=== PATIENT | female | born 1945 | race Caucasian/White ===

== ENCOUNTER → 2023-04-10 09:38 | Outpatient (REF) | payer MEDICARE, SELFPAY | LOC: HWRAD 09:38 | PROVIDERS: ATTENDING PHYSICIAN Specialist; FAMILY PHYSICIAN Internal Medicine | DX: N83.209 Unspecified ovarian cyst, unspecified side (principal) | CPT/HCPCS: 76830; 76856 ==

== ENCOUNTER → 2023-04-14 14:15 | Outpatient (REF) | payer MEDICARE, SELFPAY | LOC: DHCBC MAIN 14:15 | PROVIDERS: ATTENDING PHYSICIAN Internal Medicine Cardiovascular Disease; FAMILY PHYSICIAN Internal Medicine | DX: I48.0 Paroxysmal atrial fibrillation (principal); I10 Essential (primary) hypertension; I34.0 Nonrheumatic mitral (valve) insufficiency | CPT/HCPCS: 93306 ==

== ENCOUNTER → 2023-07-08 11:06 | Outpatient (REF) | payer MEDICARE, SELFPAY | LOC: WDC 11:06 | PROVIDERS: ATTENDING PHYSICIAN Internal Medicine | DX: Z12.31 Encounter for screening mammogram for malignant neoplasm of breast (principal) | CPT/HCPCS: 77063; 77067 ==

== ENCOUNTER → 2023-07-11 07:41 | Outpatient (REF) | payer MEDICARE, SELFPAY ==
[2023-07-11 08:12] LABS: % Basophils 0.6 % (0-2); % Eosinophils 2.9 % (0-6); % Immature Granulocytes 0.4 % (0-0.5); % Lymphocytes 29.3 % (20.5-51.1); % Monocytes 7.3 % (1.7-9.3); % Neutrophils 59.5 % (42.2-75.2); Absolute Eosinophils 0.2 10^3/uL (0-0.7); Absolute Lymphocytes 2.1 10^3/uL (1.2-3.4); Absolute Monocytes 0.5 10^3/uL (0.1-0.6); Absolute Neutrophils 4.3 10^3/uL (1.4-6.5); Hematocrit 40.5 % (37.0-47.0); Hemoglobin 13.6 g/dL (12.0-16.0); Mean Corp Hgb Conc. 33.6 g/dL (33.0-37.0); Mean Corpuscular Hgb 29.9 pg (27.0-31.0); Mean Platelet Volume 9.7 fL (7.4-10.4); Nucleated Red Blood Cells % 0 %; Platelet Count 263 10^3/uL (130-400); Red Blood Cell Count 4.55 10^6/uL (4.20-5.40); Red Cell Dist. Width 13.5 % (11.5-14.5); White Blood Cell Count 7.2 10^3/uL (4.8-10.8)
[2023-07-11 09:06] LABS: ALT (SGPT) 24 U/L (0-35); AST (SGOT) 29 U/L (14-36); Albumin 4.1 g/dl (3.5-5.0); Alkaline Phosphatase 105 U/L (38-126); Blood Urea Nitrogen 19 mg/dl (7-17); Calcium 9.5 mg/dl (8.4-10.2); Carbon Dioxide 21 mmol/L (22-30); Chloride 106 mmol/L (98-107); Glucose 108 mg/dl (70-99); HDL Cholesterol 62 mg/dl; LDL Cholesterol, Calculated 80 mg/dl; Potassium 4.2 mmol/L (3.5-5.1); Sodium 139 mmol/L (135-145); Total Bilirubin 0.7 mg/dl (0.2-1.3); Total Cholesterol 162 mg/dl (50-199); Total Protein 7.4 g/dl (6.3-8.2); Triglyceride 104 mg/dl (10-149); Very Low Density Lipoprotein 20 mg/dl (0-30); eGFR > 60.00
== END ==
LOC: REG 07:41
PROVIDERS: ATTENDING PHYSICIAN Internal Medicine
DX: I10 Essential (primary) hypertension (principal); E78.5 Hyperlipidemia, unspecified
CPT/HCPCS: 36415; 80053; 80061; 85025

== ENCOUNTER → 2024-04-04 11:55 | Outpatient (REF) | payer MEDICARE, SELFPAY | LOC: HWRAD 11:55 | PROVIDERS: ATTENDING PHYSICIAN Orthopaedic Surgery Hand Surgery; FAMILY PHYSICIAN Internal Medicine | DX: M25.512 Pain in left shoulder (principal) | CPT/HCPCS: 73200 ==

== ENCOUNTER 2024-04-20 06:07 | Day surgery (SDC) | payer MEDICARE, SELFPAY ==
[2024-04-06 11:14] LABS: Hematocrit 42.2 % (37.0-47.0); Hemoglobin 14.1 g/dL (12.0-16.0); Mean Corp Hgb Conc. 33.4 g/dL (33.0-37.0); Mean Corpuscular Hgb 30.7 pg (27.0-31.0); Mean Corpuscular Volume 91.9 fL (81.0-99.0); Mean Platelet Volume 10.2 fL (7.4-10.4); Platelet Count 252 10^3/uL (130-400); Red Blood Cell Count 4.59 10^6/uL (4.20-5.40); Red Cell Dist. Width 13.6 % (11.5-14.5); White Blood Cell Count 11.3 10^3/uL (4.8-10.8)
[2024-04-06 13:11] LABS: ALT (SGPT) 47 U/L (0-35); AST (SGOT) 26 U/L (14-36); Albumin 4.2 g/dl (3.5-5.0); Alkaline Phosphatase 120 U/L (38-126); Blood Urea Nitrogen 22 mg/dl (7-17); Calcium 9.3 mg/dl (8.4-10.2); Carbon Dioxide 26 mmol/L (22-30); Chloride 104 mmol/L (98-107); Glucose 73 mg/dl (70-99); Potassium 4.2 mmol/L (3.5-5.1); Sodium 139 mmol/L (135-145); Total Bilirubin 0.6 mg/dl (0.2-1.3); Total Protein 7.2 g/dl (6.3-8.2); eGFR 58.02
[2024-04-06 13:26] LABS: Glycohemoglobin (HgbA1c) 5.6 % (4.0-5.6)
[2024-04-06 13:31] VITALS: BMI 27.1
--- NOTE | 2024-04-13 09:07 | PTCARENOTE ---
Patients 04/06 GFR [id number]- Melissa @ Dr. Molina office notified
[2024-04-18 11:43] VITALS: BMI 27.1
[2024-04-20] VITALS (13 sets, daily range): BP systolic 101–186; BP diastolic 44–79
[2024-04-20] MEDS: MOBIC 15 MG PO (10:13)
[2024-04-20] MEDS: TYLENOL 1000 MG PO (10:13)
[2024-04-20] MEDS: NORMOSOL-R/PLASMALYTE-A 1000 IV (10:15)
[2024-04-20] MEDS: ZOFRAN 4 MG IV (14:51)
== END 2024-04-20 16:55 | disposition home or self-care (01) ==
LOC: SDS 06:07
PROVIDERS: ATTENDING PHYSICIAN Orthopaedic Surgery Hand Surgery; FAMILY PHYSICIAN Internal Medicine; REFERRING PHYSICIAN Internal Medicine Cardiovascular Disease
DX: M87.9 Osteonecrosis, unspecified (principal); M19.012 Primary osteoarthritis, left shoulder; Z96.612 Presence of left artificial shoulder joint
CPT/HCPCS: 23472; C1776; C1713; 36415; 73020; 80053; 83036; 85027; 87070

== ENCOUNTER → 2024-10-22 12:45 | Outpatient (REF) | payer MEDICARE, SELFPAY | LOC: WDC 12:45 | PROVIDERS: ATTENDING PHYSICIAN Internal Medicine | DX: Z12.31 Encounter for screening mammogram for malignant neoplasm of breast (principal) | CPT/HCPCS: 77063; 77067 ==

== ENCOUNTER → 2024-12-30 07:18 | Outpatient (REF) | payer MEDICARE, SELFPAY ==
[2024-12-30 08:33] LABS: Hematocrit 41.1 % (37.0-47.0); Hemoglobin 13.4 g/dL (12.0-16.0); Mean Corp Hgb Conc. 32.6 g/dL (33.0-37.0); Mean Corpuscular Volume 89.0 fL (81.0-99.0); Nucleated Red Blood Cells % 0 %; Platelet Count 273 10^3/uL (130-400); Red Cell Dist. Width 13.4 % (11.5-14.5)
[2024-12-30 09:08] LABS: ALT (SGPT) 28 U/L (0-35); AST (SGOT) 27 U/L (14-36); Albumin 4.5 g/dl (3.5-5.0); Alkaline Phosphatase 117 U/L (38-126); Total Protein 7.7 g/dl (6.3-8.2)
== END ==
LOC: REG 07:18
PROVIDERS: ATTENDING PHYSICIAN Internal Medicine
DX: I10 Essential (primary) hypertension (principal); D72.829 Elevated white blood cell count, unspecified; R94.5 Abnormal results of liver function studies
CPT/HCPCS: 36415; 80076; 85025